=== PATIENT | female | born 1985 | race Two or more races ===

== ENCOUNTER 2022-10-02 10:25 | Observation (INO) | payer MEDICAID ==
[2022-10-02] MEDS ORDERED: PREN1TAB71 OR (11:49)
== END 2022-10-02 12:05 | disposition home or self-care (01) ==
LOC: LDRP 10:25
PROVIDERS: ADMIT Obstetrics & Gynecology; ATTEND Obstetrics & Gynecology
DX: O24.419 Gestational diabetes mellitus in pregnancy, unspecified control (principal); Z3A.34 34 weeks gestation of pregnancy
CPT/HCPCS: 59025; 76818; 81002; 82948; 82962; G0378

== ENCOUNTER 2022-10-08 08:20 | Observation (INO) | payer MEDICAID ==
[~2022-10-08 08:20] MED LIST: PREN1TAB71 OR
== END 2022-10-08 11:14 | disposition home or self-care (01) ==
LOC: UNDOADMOB 10:07 → LDRP 10:07 → UNDODISOB 11:14
PROVIDERS: ADMIT Obstetrics & Gynecology; ATTEND Obstetrics & Gynecology
DX: O24.419 Gestational diabetes mellitus in pregnancy, unspecified control (principal); Z3A.34 34 weeks gestation of pregnancy
CPT/HCPCS: 59025; 76818; 81002; 82948; 82962; 94760; G0378

== ENCOUNTER 2022-10-15 10:18 | Observation (INO) | payer MEDICAID ==
[~2022-10-15] VITALS: Ht 154.9 cm; Wt 78.5 kg
[2022-10-15] MEDS ORDERED: CEPH-322 PO (12:02)
== END 2022-10-15 12:19 | disposition home or self-care (01) ==
LOC: LDRP 10:18 → UNDOADMOB 10:18 → LDRP 11:04 → UNDODISOB 12:19
PROVIDERS: ADMIT Obstetrics & Gynecology; ATTEND Obstetrics & Gynecology
DX: O24.419 Gestational diabetes mellitus in pregnancy, unspecified control (principal); Z3A.35 35 weeks gestation of pregnancy
CPT/HCPCS: 59025; 76818; 81002; 82948; 82962; 94760; G0378

== ENCOUNTER 2022-10-22 10:17 | Observation (INO) | payer MEDICAID ==
[~2022-10-22 10:17] MED LIST changes: +CEPH-322 PO
== END 2022-10-22 11:35 | disposition home or self-care (01) ==
LOC: LDRP 10:17 → UNDOADMOB 10:17 → LDRP 10:56
PROVIDERS: ADMIT Obstetrics & Gynecology; ATTEND Obstetrics & Gynecology
DX: O24.419 Gestational diabetes mellitus in pregnancy, unspecified control (principal); Z3A.36 36 weeks gestation of pregnancy
CPT/HCPCS: 59025; 76818; 81002; 82948; 82962; 94760; G0378

== ENCOUNTER 2022-10-23 10:44 | Observation (INO) | payer MEDICAID ==
[~2022-10-23] VITALS: Ht 154.9 cm; Wt 79.4 kg
[2022-10-23] MEDS ORDERED: LACTATED RINGER'S 1,000 ML IV ONE ×2 (11:30→13:15)
[2022-10-23 12:00] LABS: Basophils # (auto) 0 10 ^3/uL (0-0.2); Basophils % (auto) 0.3 % (0.0-2.0); Eosinophils # (auto) 0 10 ^3/uL (0-0.8); Eosinophils % (auto) 0.5 % (0.0-7.0); Hematocrit 41.6 % (36.0-46.0); Hemoglobin 13.7 g/dL (12.2-16.2); Lymphocytes # (auto) 0.6 10 ^3/uL (0.4-5.4); Lymphocytes % (auto) 7.8 % (10.0-50.0); Mean Corpuscular Hemoglobin 29.5 pg (28.0-32.0); Mean Corpuscular Volume 89.4 fL (80.0-100.0); Monocytes # (auto) 0.5 10 ^3/uL (0-1.3); Monocytes % (auto) 6.6 % (0.0-12.0); Neutrophils % (auto) 84.8 % (37.0-80.0); Nucleated Red Blood Cells % 0.1 %; Red Blood Cells 4.65 10^6/uL (4.0-5.20); Red Cell Distribution Width 16.1 % (11.8-14.3); White Blood Cell 8.2 10^3/uL (4.4-10.8)
[2022-10-23 12:15] LABS: Albumin 2.8 g/dL (3.4-5.0); Calcium 8.5 mg/dL (8.5-10.1); Potassium 3.7 mmol/L (3.5-5.1)
[2022-10-23 12:17] LABS: Bilirubin, Total 0.6 mg/dL (0.2-1.0); Total Protein 7.5 g/dL (6.4-8.2)
== END 2022-10-23 14:20 | disposition home or self-care (01) ==
LOC: LDRP 10:44
PROVIDERS: ADMIT Obstetrics & Gynecology; ATTEND Obstetrics & Gynecology
DX: O26.893 Other specified pregnancy related conditions, third trimester (principal); Z20.822 Contact with and (suspected) exposure to COVID-19; R19.7 Diarrhea, unspecified; R68.83 Chills (without fever); R05.9 Cough, unspecified; Z3A.37 37 weeks gestation of pregnancy
CPT/HCPCS: 36415; 59025; 80053; 81002; 82962; 85025; 87426; 96360; 96361; G0378

== ENCOUNTER 2022-10-26 08:26 | Observation (INO) | payer MEDICAID ==
[~2022-10-26 08:26] MED LIST changes: -CEPH-322 PO
== END 2022-10-26 16:09 | disposition home or self-care (01) ==
LOC: UNDOADMOB 13:49 → LDRP 13:49
PROVIDERS: ADMIT Obstetrics & Gynecology; ATTEND Obstetrics & Gynecology
DX: O24.419 Gestational diabetes mellitus in pregnancy, unspecified control (principal); O62.9 Abnormality of forces of labor, unspecified; Z3A.37 37 weeks gestation of pregnancy
CPT/HCPCS: 59025; 76818; 81002; 82962; 94760; G0378